=== PATIENT | male | born 1990 | race Caucasian/White ===

== ENCOUNTER 2017-07-30 20:59 | Emergency (ER) | payer OTHER ==
[~2017-07-30] VITALS: Ht 170.2 cm; Wt 99.8 kg
[2017-07-30 21:04] VITALS: BP 150/86
--- NOTE | 2017-07-30 21:18 | NUR ---
PT TAKEN TO BED 3.
--- NOTE | 2017-07-30 21:23 | NUR ---
XRAY AT BEDSIDE
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
[2017-07-30] MEDS ORDERED: BACITRACIN OINT 500 UNITS/GM PKT TP ONE (22:08)
[2017-07-30 22:20] VITALS: BP 136/78
--- NOTE | 2017-07-30 22:20 | NUR ---
Patient discharged with v/s stable. Written and verbal after care instructions given and explained. Patient verbalized understanding. Ambulatory with steady gait. All questions addressed prior to discharge. Advised to follow up with PMD.
== END 2017-07-30 22:20 | disposition home or self-care (01) ==
LOC: MED 20:59
DX: S61.231A Puncture wound without foreign body of left index finger without damage to nail, initial encounter (principal); Z90.89 Acquired absence of other organs; W31.0XXA Contact with mining and earth-drilling machinery, initial encounter; Y93.89 Activity, other specified; Y92.89 Other specified places as the place of occurrence of the external cause; Y99.8 Other external cause status
CPT/HCPCS: 73140; 90471; 90715; 99284; Q0092

== ENCOUNTER 2017-08-01 17:29 | Emergency (ER) | payer OTHER ==
[~2017-08-01] VITALS: Ht 170.2 cm; Wt 98.5 kg
[2017-08-01 17:42] VITALS: BP 135/89
--- NOTE | 2017-08-01 17:46 | NUR ---
Patient ambulated to bed 11.
--- NOTE | 2017-08-01 17:55 | NUR ---
PT AWAITS MD MARIN
--- NOTE | 2017-08-01 18:13 | NUR ---
Dr. Munroe evaluating patient at bedside.
[2017-08-01 18:22] VITALS: BP 118/69
== END 2017-08-01 18:22 | disposition home or self-care (01) ==
LOC: MED 17:29
DX: Z48.01 Encounter for change or removal of surgical wound dressing (principal)
CPT/HCPCS: 99281